=== PATIENT | female | born 1965 | race Caucasian/White ===

== ENCOUNTER 2023-03-27 17:24 | Emergency (ER) | payer MEDICAID ==
[~2023-03-27] VITALS: Ht 149.9 cm; Wt 88.9 kg
[~2023-03-27 17:24] MED LIST: ASPI-1071 PO; ATOR20TA66 PO; CLOP75TA34 PO; HYDROchlorothiazide tablet PO; LISI10TA27 PO; METF-1203 PO; NOR5T PO
--- NOTE | 2023-03-27 17:33 | NUR ---
CM HADLEY MADE AWARE OF PTS HIGH BP. NO NEW ORDERS
--- NOTE | 2023-03-27 17:38 | NUR ---
PT HAD TOLD THIS [employer] [employer] THAT SHE HAD NO PAIN. WHEN SENT BACK TO [facility] TO WAIT, SHE STATED SHE HAD CHEST PAIN. ACS PROTOCOL INITIATED.
[2023-03-27 18:37] LABS: BASOPHILS % (AUTO) 0.4 % (0-1); EOSINOPHILS # (AUTO) 0.2 X10'3 (0-0.9); EOSINOPHILS % (AUTO) 2.1 % (0-6); HEMATOCRIT 46.3 % (35.0-45.0); HEMOGLOBIN 16.2 g/dl (12.0-16.0); LYMPHOCYTES # (AUTO) 1.4 X10'3 (1.1-4.8); LYMPHOCYTES % (AUTO) 13.1 % (21-51); MEAN CORPUSCULAR HEMOGLOBIN 30.7 PG (27.0-31.0); MEAN CORPUSCULAR HGB CONC 34.9 g/dL (33.0-36.5); MEAN CORPUSCULAR VOLUME 88.2 FL (78-98); MEAN PLATELET VOLUME 8.5 FL (7.4-10.4); MONOCYTES # (AUTO) 0.8 X10'3 (0-0.9); MONOCYTES % (AUTO) 7.6 % (2-12); NEUTROPHILS # (AUTO) 8.4 X10'3 (1.8-7.7); NEUTROPHILS % (AUTO) 76.8 % (42-75); PLATELET COUNT 219 X10'3 (140-440); RED BLOOD COUNT 5.25 X10'6 (4.20-5.60); WHITE BLOOD COUNT 10.9 X10'3 (4.5-11.0)
[2023-03-27 18:47] LABS: ALANINE AMINOTRANSFERASE 29 U/L (12-78); ALBUMIN 3.6 G/DL (3.4-5.0); ALKALINE PHOSPHATASE 97 IU/L (46-116); ANION GAP 13 (8-16); ASPARTATE AMINO TRANSFERASE 29 U/L (10-37); BLOOD UREA NITROGEN 15 MG/DL (7-18); BUN/CREATININE RATIO 17.2 (10.0-20.0); CALCIUM 9.5 MG/DL (8.5-10.1); CHLORIDE 97 MMOL/L (99-107); CREATININE 0.87 MG/DL (0.40-0.90); GLUCOSE 281 MG/DL (70-104); POTASSIUM 3.1 MMOL/L (3.5-5.1); SODIUM 132 MMOL/L (135-145); TOTAL CARBON DIOXIDE 22.5 MMOL/L (24-32); TOTAL PROTEIN 7.2 G/DL (6.4-8.2); eCRCL 49 ML/MIN; eGFR 67 ML/MIN
[2023-03-27 18:55] LABS: LIPASE 79 U/L (16-77); PRO BRAIN NATRIURETIC PEPTIDE 71 PG/ML (0-125)
[2023-03-27 19:40] LABS: URINE HCG NEGATIVE (NEG)
[2023-03-27 19:48] LABS: BILIRUBIN,URINE NEGATIVE (Neg); CLARITY,URINE SLIGHTLY CLOUDY (Clear); COLOR,URINE STRAW (Yellow); GLUCOSE, URINE 250 mg/dl (Neg); KETONES,URINE TRACE mg/dl (Neg); LEUKOCYTE ESTERASE ,URINE SMALL (Neg); NITRITES, URINE NEGATIVE (Neg); OCCULT BLOOD,URINE SMALL (Neg); PROTEIN,URINE NEGATIVE (Neg); UROBILINOGEN,URINE 0.2 E.U/dL (0.2-1.0)
[2023-03-27 20:00] VITALS: BP 186/88; PULSE 88; RESP 20; TEMP 98.7; O2SAT 97
[2023-03-27 20:05] LABS: UA COLLECTION TYPE CLN CATCH MIDSTREAM
[2023-03-27 20:06] LABS: SQUAMOUS EPITHELIAL CELL,UR MANY /LPF (FEW)
[2023-03-27 20:07] LABS: BACTERIA,URINE 4+ /HPF (Neg); RBC,URINE 0-2 /HPF (0-2)
[2023-03-27] MEDS ORDERED: POTASSIUM BICARB 20meq eff tab 20 MEQ TABLET.EFF PO ONE (20:15)
[2023-03-27] MEDS ORDERED: ringers solution, lacted 1,000 ML IV ONE (20:25)
== END 2023-03-27 23:16 | disposition home or self-care (01) ==
LOC: ER 17:26
DX: R11.2 Nausea with vomiting, unspecified (principal); E86.0 Dehydration
CPT/HCPCS: 36415; 70450; 71045; 80053; 81001; 81025; 83690; 83880; 84484; 85025; 87088; 93005; 96360; 99285; J7120